=== PATIENT | female | born 1980 | race Caucasian/White ===

== ENCOUNTER → 2021-02-21 | Outpatient (CLI) | payer OTHER ==
--- NOTE | 2021-02-21 14:24 | CONS ---
CONSULTATION DATE OF SERVICE: 02/21/2021 INDICATION: A 40-year-old lady who [facility] for snoring and feeling tiredness in the morning after awakenings. HISTORY OF PRESENT ILLNESS/SLEEP/WAKE EVALUATION: Patient's usual sleep schedule from 9:30 p.m. until 6:30 a.m. on weekdays and from 10 p.m. to 7 a.m. on weekends. No problem with falling asleep, although she has TV set in bedroom. She sleeps in different position. According to her , she snores and she wakes up from sleep 2 times with a dry mouth. In the morning the patient wakes up tired, take naps when she has time which is usually Friday. [place] Sleepiness Scale is 3. No history of hypnagogic hallucinations, sleep paralysis or cataplexy. PAST MEDICAL HISTORY: Positive for osteochondroma of left behind knee area, sinusitis problems. PAST SURGICAL HISTORY: Osteochondroma from the left behind the knee area has been removed, benign. MEDICATIONS: Vitamin D3, melatonin. SOCIAL HISTORY: Negative for smoking or using alcohol. FAMILY HISTORY: Acid reflux, heart problems, hypertension. PHYSICAL EXAMINATION: GENERAL: lady without distress. VITAL SIGNS: BP 149/96, HR 65, RR 12, height 5 feet 7 inches, weight 186.8, body mass index 29.1, temperature 97.4, oxygen saturation at room air 99%. HEENT: PERRLA, EOMI, evaluation of oropharynx showed tongue protrudes midline. Mallampati 2-3. NECK: Supple, no JVD. Thyroid is not palpable. Measures 14 inches in circumference. LUNGS: Clear to percussion and to auscultation. Good air exchange. No wheezing or rhonchi. HEART: S1, S2 regular. No murmurs, gallops, or rubs. ABDOMEN: Soft and nontender. Bowel sounds are present. No organomegaly appreciated. EXTREMITIES: No clubbing or cyanosis. CERTIFIED LEGAL INVESTIGATOR: Awake, alert, and oriented X3. Cranial nerves 2 to 7 intact. There is no fasciculation or atrophy. noted. No focal deficits observed. IMPRESSION: 1. Snoring, awakenings from sleep. The patient does not feel refreshed in the morning after sleep. Possible obstructive sleep apnea-hypopnea syndrome. 2. Overweight, close to obesity with BMI 29.1. 3. Hypertension in the office today. 4. History of osteochondroma in the area of left leg behind the knee, status post surgical treatment, benign. PLAN: 1. Home sleep study for evaluation of patient's breathing during sleep. 2. CPAP/BiPAP titration if sleep study confirms obstructive sleep apnea-hypopnea syndrome. 3. Preferable position during sleep on the side. 4. No driving if patient feels any sleepiness. 5. I will see patient for follow up visit to explain results of testing and following plan. Thank you very much for referring this patient for consultation. Sincerely, Yang Whitney MD, PhD, FAASM Diplomat of [employer] [employer] [place] [employer] Control Panel Tester of [facility] [place] MMODL / AKHILN: [id number] /
== END ==
LOC: SLEEP 10:53
PROVIDERS: ATTEND Internal Medicine
DX: G47.33 Obstructive sleep apnea (adult) (pediatric) (principal); Z53.9 Procedure and treatment not carried out, unspecified reason